=== PATIENT | female | born 1970 | race Caucasian/White ===

== ENCOUNTER 2018-06-25 15:57 | Emergency (ER) | payer OTHER ==
[~2018-06-25] VITALS: Ht 157.5 cm; Wt 84.1 kg
[2018-06-25 16:14] LABS: GLUCOSE,POINT OF CARE 304 MG/DL (70-110)
[2018-06-25] MEDS ORDERED: PROM6.2522 PO (16:17)
[2018-06-25] MEDS ORDERED: INSLAN SQ (16:17)
[2018-06-25] MEDS ORDERED: LEVO25TA9 PO (16:17)
[2018-06-25] MEDS ORDERED: HYDR-4455 PO (16:17)
[2018-06-25] MEDS ORDERED: [UNRECOGNIZED DRUG - OTHER] PO (16:17)
[2018-06-25] MEDS ORDERED: GABA-533 PO (16:17)
[2018-06-25] MEDS ORDERED: SODIUM CHLORIDE 0.9% 1,000 ML IV ONE (16:45)
[2018-06-25 17:09] LABS: BASOPHILS % (AUTO) 0.5 % (0.0-2.0); EOSINOPHILS % (AUTO) 1.3 % (1.0-6.0); HEMATOCRIT 24.4 % (36-46); HEMOGLOBIN 8.4 g/dL (12.0-16.0); LYMPHOCYTES # (AUTO) 2.6 K/uL (1.0-4.8); LYMPHOCYTES % (AUTO) 38.7 % (22.0-44.0); MEAN CORPUSCULAR HEMOGLOBIN 30.1 pg (26.0-34.0); MEAN CORPUSCULAR HGB CONC 34.6 G/dL (31.0-37.0); MEAN CORPUSCULAR VOLUME 87 fL (80-100); MONOCYTES # (AUTO) 0.4 K/uL (0.1-1.0); MONOCYTES % (AUTO) 6.4 % (2.0-9.0); NEUTROPHILS # (AUTO) 3.5 K/uL (1.8-7.7); NEUTROPHILS % (AUTO) 53.1 % (40.0-70.0); PLATELET COUNT (AUTO) 292 K/uL (150-450)
[2018-06-25 17:22] LABS: CALCIUM, TOTAL 7.9 mg/dL (8.8-10.5); CREATININE 1.62 mg/dL (0.60-1.30); POTASSIUM 5.3 mmol/L (3.5-5.1)
[2018-06-25 17:25] LABS: ALBUMIN 2.3 g/dL (3.4-5.0); BILIRUBIN,TOTAL 0.2 mg/dL (0.1-1.0); TOTAL PROTEIN, SERUM 5.8 g/dL (6.4-8.2)
[2018-06-25] MEDS ORDERED: HYDROCODONE/ACETAMINOPHEN 5-325 MG TABLET PO ONE (18:45)
[2018-06-25 19:14] LABS: GLUCOSE,POINT OF CARE 283 MG/DL (70-110)
[2018-06-25 20:20] VITALS: BP 183/92
== END 2018-06-25 20:42 | disposition home or self-care (01) ==
LOC: EMS 15:58
DX: E11.65 Type 2 diabetes mellitus with hyperglycemia (principal); D64.9 Anemia, unspecified; G89.29 Other chronic pain; E03.9 Hypothyroidism, unspecified; M19.90 Unspecified osteoarthritis, unspecified site; Z88.0 Allergy status to penicillin; Z79.4 Long term (current) use of insulin
CPT/HCPCS: 36415; 80053; 82962; 84484; 84703; 85025; 93005; 96360; 96361; 99285; J7030

== ENCOUNTER 2018-07-03 12:50 | Inpatient (IN) | payer OTHER ==
[~2018-07-03] VITALS: Ht 165.1 cm; Wt 80.2 kg
[~2018-07-03 12:50] MED LIST: GABA-533 PO; HYDR-4455 PO; INSLAN SQ; LEVO25TA9 PO; PROM6.2522 PO; [UNRECOGNIZED DRUG - OTHER] PO
[2018-07-03] MEDS ORDERED: METH10 PO (13:15)
[2018-07-03 13:24] LABS: GLUCOSE,POINT OF CARE 310 MG/DL (70-110)
[2018-07-03 14:13] LABS: BASOPHILS % (AUTO) 0.5 % (0.0-2.0); EOSINOPHILS % (AUTO) 1.6 % (1.0-6.0); HEMATOCRIT 26.7 % (36-46); HEMOGLOBIN 9.5 g/dL (12.0-16.0); LYMPHOCYTES # (AUTO) 2.7 K/uL (1.0-4.8); LYMPHOCYTES % (AUTO) 36.5 % (22.0-44.0); MEAN CORPUSCULAR HEMOGLOBIN 30.2 pg (26.0-34.0); MEAN CORPUSCULAR HGB CONC 35.7 G/dL (31.0-37.0); MEAN CORPUSCULAR VOLUME 84 fL (80-100); MONOCYTES # (AUTO) 0.4 K/uL (0.1-1.0); MONOCYTES % (AUTO) 4.8 % (2.0-9.0); NEUTROPHILS # (AUTO) 4.2 K/uL (1.8-7.7); NEUTROPHILS % (AUTO) 56.6 % (40.0-70.0); PLATELET COUNT (AUTO) 334 K/uL (150-450); RED BLOOD CELL COUNT(AUTO) 3.16 MIL/uL (4.00-5.20); RED CELL DISTRIBUTION WIDTH 14.1 % (11.5-14.5)
[2018-07-03 14:25] LABS: INR 0.9 (0.9-1.1); PROTHROMBIN TIME 9.7 SEC (9.4-11.6)
[2018-07-03 14:27] LABS: CALCIUM, TOTAL 8.4 mg/dL (8.8-10.5); CREATININE 1.86 mg/dL (0.60-1.30); POTASSIUM 4.6 mmol/L (3.5-5.1)
[2018-07-03] MEDS ORDERED: NITROGLYCERIN 2% (1 GM=INCH) PACKET TP ONE (14:30)
[2018-07-03] MEDS ORDERED: ASPIRIN 81 MG CHEWABLE TABLET PO ONE (14:30)
[2018-07-03 14:51] LABS: ALBUMIN 2.8 g/dL (3.4-5.0); BILIRUBIN,TOTAL 0.2 mg/dL (0.1-1.0); TOTAL PROTEIN, SERUM 6.7 g/dL (6.4-8.2)
[2018-07-03] MEDS ORDERED: SODIUM CHLORIDE 0.9% 1,000 ML IV ONE (15:15)
[2018-07-03] MEDS ORDERED: MORPHINE SULFATE 4 MG/ML SYRINGE IVP ONE (16:00)
[2018-07-03 16:30] LABS: APPEARANCE,URINE CLOUDY (CLEAR); BILIRUBIN,URINE NEGATIVE (NEGATIVE); GLUCOSE, URINE (UA) >=1000 mg/dL (NEGATIVE); KETONES,URINE NEGATIVE (NEGATIVE); LEUKOCYTE ESTERASE ,URINE NEGATIVE (NEGATIVE); NITRATE,URINE NEGATIVE (NEGATIVE); OCCULT BLOOD,URINE TRACE (NEGATIVE); PROTEIN,URINE SEE CONFIRM (NEGATIVE); UROBILINOGEN,URINE 0.2 mg/dL (<=1.0)
[2018-07-03] MEDS ORDERED: ACETAMINOPHEN 325 MG TABLET PO PRN ×2 (16:30→20:45)
[2018-07-03] MEDS ORDERED: ONDANSETRON HCL 4 MG/2 ML VIAL IVP PRN (16:30)
[2018-07-03] MEDS ORDERED: 0.9% SODIUM CHLORIDE 10 ML SYRINGE IVP PRN (16:30)
[2018-07-03 16:38] LABS: SULFOSALICYLIC ACID,URINE 4+ (Negative)
[2018-07-03 16:39] LABS: BACTERIA,URINE Few /HPF (None Seen); SQUAMOUS EPITHELIAL CELL,UR Many /LPF (None Seen)
[2018-07-03] MEDS: LABETALOL HCL 5 MG/ML 20 ML VIAL IVP ONE ×2 (17:39→17:55)
[2018-07-03 18:46] VITALS: BP 152/78
[2018-07-03 20:09] VITALS: BP 137/91
[2018-07-03] MEDS ORDERED: BISACODYL 10 MG RECTAL RECTAL SUPPOSITORY PR PRN (20:45)
[2018-07-03] MEDS ORDERED: OxyCODONE HCL/ACETAMINOPHEN 5-325 MG TABLET PO PRN (20:45)
[2018-07-03] MEDS ORDERED: DEXTROSE 50%-WATER 25 GM/50 ML SYRINGE IVP PRN (20:45)
[2018-07-03] MEDS ORDERED: INSULIN GLARGINE,HUM.REC.ANLOG 100 UNITS/ML SQ SCH (21:00)
[2018-07-03] MEDS ORDERED: ATORVASTATIN CALCIUM 20 MG TABLET PO SCH (21:00)
[2018-07-03] MEDS ORDERED: METHADONE HCL 10 MG TABLET PO SCH (21:00)
[2018-07-03] MEDS: DOCUSATE SODIUM 100 MG CAPSULE PO SCH (21:00)
[2018-07-03] MEDS: OxyCODONE HCL/ACETAMINOPHEN 5-325 MG TABLET PO PRN (21:17)
[2018-07-03] MEDS: INSULIN LISPRO 100 UNITS/ML SQ PRN (21:24)
[2018-07-03 23:50] VITALS: BP 158/78
[2018-07-04 00:09] LABS: GLUCOMETER DEV NAME(LOC) 5S 2R; GLUCOSE,POINT OF CARE 349 MG/DL (70-110)
[2018-07-04] MEDS: OxyCODONE HCL/ACETAMINOPHEN 5-325 MG TABLET PO PRN ×2 (03:17→08:07)
[2018-07-04 03:35] VITALS: BP 156/78
[2018-07-04] MEDS: INSULIN LISPRO 100 UNITS/ML SQ PRN (06:22)
[2018-07-04 06:29] LABS: HEMOGLOBIN A1C 11.2 % (4.5-6.2)
[2018-07-04 06:38] LABS: CHOL/HDL RATIO 6.1 (3.9-5.7); CHOLESTEROL 336 mg/dL (131-200); HDL CHOLESTEROL 55 mg/dL (40-60); TRIGLYCERIDES 575 mg/dL (15-150)
[2018-07-04 07:22] VITALS: BP 146/79
[2018-07-04] MEDS: DOCUSATE SODIUM 100 MG CAPSULE PO SCH (08:07)
[2018-07-04] MEDS ORDERED: PANTOPRAZOLE SODIUM 40 MG DR TABLET PO SCH (09:00)
[2018-07-04] MEDS ORDERED: ASPIRIN 81 MG CHEWABLE TABLET PO SCH (09:00)
[2018-07-04 10:04] LABS: GLUCOMETER DEV NAME(LOC) 5S 2R; GLUCOSE,POINT OF CARE 229 MG/DL (70-110)
[2018-07-04] MEDS ORDERED: ONDANSETRON HCL 4 MG/2 ML VIAL IVP PRN (10:15)
[2018-07-04 11:25] VITALS: BP 155/77
[2018-07-04] MEDS ORDERED: METHADONE HCL 10 MG TABLET PO SCH (11:30)
[2018-07-04] MEDS ORDERED: ATOR40TA28 PO (13:08)
[2018-07-04 16:10] VITALS: BP 169/79
[2018-07-06 05:49] LABS: GLUCOMETER DEV NAME(LOC) 5N 1P; GLUCOSE,POINT OF CARE 135 MG/DL (70-110)
== END 2018-07-04 17:00 | disposition home or self-care (01) | DRG 203 ==
LOC: EMS 12:51 → 5S 16:19
PROVIDERS: ADMIT Internal Medicine; ATTEND Internal Medicine
DX: R07.89 Other chest pain (principal); E11.40 Type 2 diabetes mellitus with diabetic neuropathy, unspecified; E11.21 Type 2 diabetes mellitus with diabetic nephropathy; N17.9 Acute kidney failure, unspecified; F11.20 Opioid dependence, uncomplicated; E11.22 Type 2 diabetes mellitus with diabetic chronic kidney disease; M32.9 Systemic lupus erythematosus, unspecified; N18.3 Chronic kidney disease, stage 3 (moderate); I16.0 Hypertensive urgency; E03.9 Hypothyroidism, unspecified; M19.90 Unspecified osteoarthritis, unspecified site; G89.4 Chronic pain syndrome; D63.8 Anemia in other chronic diseases classified elsewhere; E11.65 Type 2 diabetes mellitus with hyperglycemia; Z88.0 Allergy status to penicillin; Z88.8 Allergy status to other drugs, medicaments and biological substances; Z79.4 Long term (current) use of insulin; Z91.19 Patient's noncompliance with other medical treatment and regimen
CPT/HCPCS: 83036; 93005; 93306; 96374; 96375; G0378; J1815; J2270; J2405; J3490; J7030

== ENCOUNTER 2021-03-30 12:25 | Inpatient (IN) | payer MEDICAID, OTHER ==
[~2021-03-30] VITALS: Ht 165.1 cm; Wt 81.0 kg
[~2021-03-30 12:25] MED LIST changes: +ATOR40TA28 PO; +GABA-1201 PO; -GABA-533 PO; +METH10 PO; -PROM6.2522 PO
[2021-03-30 13:55] LABS: BASOPHILS % (AUTO) 0.7 % (0.0-2.0); EOSINOPHILS % (AUTO) 1.6 % (1.0-6.0); HEMATOCRIT 26.8 % (36-46); HEMOGLOBIN 8.7 g/dL (12.0-16.0); LYMPHOCYTES % (AUTO) 29.5 % (22.0-44.0); MEAN CORPUSCULAR HEMOGLOBIN 29.5 pg (26.0-34.0); MEAN CORPUSCULAR HGB CONC 32.5 G/dL (31.0-37.0); MEAN CORPUSCULAR VOLUME 91 fL (80-100); MONOCYTES # (AUTO) 0.6 K/uL (0.1-1.0); MONOCYTES % (AUTO) 8.2 % (2.0-9.0); NEUTROPHILS # (AUTO) 4.1 K/uL (1.8-7.7); PLATELET COUNT (AUTO) 310 K/uL (150-450); RED BLOOD CELL COUNT(AUTO) 2.94 MIL/uL (4.00-5.20); RED CELL DISTRIBUTION WIDTH 16.1 % (11.5-14.5)
[2021-03-30 13:59] LABS: COVID AG,FIA SOURCE NASOPHARYNGEAL
[2021-03-30] MEDS ORDERED: LEVO100 PO (13:59)
[2021-03-30] MEDS ORDERED: CARV12.530 PO (13:59)
[2021-03-30] MEDS ORDERED: DULA1.5P SQ (13:59)
[2021-03-30 14:00] LABS: ANION GAP 8 mmol/L (8-16); CALCIUM, TOTAL 7.3 mg/dL (8.8-10.5); CARBON DIOXIDE 28 mmol/L (22-29); CHLORIDE 97 mmol/L (98-107); CREATININE 9.41 mg/dL (0.60-1.30); GLOMERULAR FILTR. RATE CALC 4 mL/min (>60); GLUCOSE,RANDOM 328 mg/dL (70-110); POTASSIUM 5.5 mmol/L (3.5-5.1); SODIUM SERUM 133 mmol/L (136-145); UREA NITROGEN, BLOOD 66 mg/dL (7-18)
[2021-03-30] MEDS ORDERED: ONDANSETRON HCL 4 MG/2 ML VIAL IVP PRN (14:00)
[2021-03-30] MEDS ORDERED: DEXTROSE 50%-WATER 25 GM/50 ML SYRINGE IVP PRN (14:00)
[2021-03-30 14:06] LABS: ALANINE AMINOTRANSFERASE 29 U/L (12-78); ALBUMIN 3.4 g/dL (3.4-5.0); ALKALINE PHOSPHATASE 77 U/L (46-116); ASPARTATE AMINOTRANSFERASE 16 U/L (15-37); BILIRUBIN,TOTAL 0.2 mg/dL (0.1-1.0); TOTAL PROTEIN, SERUM 7.1 g/dL (6.4-8.2)
[2021-03-30 14:46] VITALS: BP 156/74
[2021-03-30] MEDS: LORazepam 2 MG/ML VIAL IVP PRN ×2 (16:16→22:48)
[2021-03-30] MEDS: INSULIN LISPRO 100 UNITS/ML SQ PRN ×2 (17:07→22:54)
[2021-03-30] MEDS ORDERED: SODIUM CHLORIDE 0.9% 2,000 ML ONE (18:02)
[2021-03-30 18:08] LABS: GLUCOMETER DEV NAME(LOC) 6S.1; GLUCOSE,POINT OF CARE 193 MG/DL (70-110)
[2021-03-30] MEDS: GABAPENTIN 100 MG CAPSULE PO SCH (18:23)
[2021-03-30] MEDS: HEPARIN SODIUM,PORCINE 5,000 UNITS/ML VIAL SQ SCH (21:00)
[2021-03-30 22:30] VITALS: BP 101/46
[2021-03-30] MEDS: ACETAMINOPHEN 325 MG TABLET PO PRN (22:49)
[2021-03-30] MEDS: DOCUSATE SODIUM 100 MG CAPSULE PO SCH (22:54)
[2021-03-30 23:54] LABS: GLUCOMETER DEV NAME(LOC) 6N.1; GLUCOSE,POINT OF CARE 209 MG/DL (70-110)
[2021-03-30] MEDS: ZOLPIDEM TARTRATE 5 MG TABLET PO PRN (23:56)
[2021-03-31 03:00] VITALS: BP 100/58
[2021-03-31] MEDS: ACETAMINOPHEN 325 MG TABLET PO PRN ×5 (03:37→20:05)
[2021-03-31] MEDS: LORazepam 2 MG/ML VIAL IVP PRN ×5 (03:40→20:06)
[2021-03-31] MEDS ORDERED: LIDOCAINE/PF 1% 2 ML VIAL IM ONE (03:47)
[2021-03-31] MEDS ORDERED: DiphenhydrAMINE HCL 50 MG/ML VIAL IVP ONE (03:47)
[2021-03-31] MEDS: INSULIN LISPRO 100 UNITS/ML SQ PRN ×3 (05:59→22:43)
[2021-03-31 06:56] LABS: GLUCOMETER DEV NAME(LOC) 6N.1; GLUCOSE,POINT OF CARE 269 MG/DL (70-110)
[2021-03-31 07:25] VITALS: BP_SYST 107; BP_SYST 123; BP_DIAS 43; BP_DIAS 68
[2021-03-31] MEDS: GABAPENTIN 100 MG CAPSULE PO SCH (08:11)
[2021-03-31] MEDS: HEPARIN SODIUM,PORCINE 5,000 UNITS/ML VIAL SQ SCH ×2 (08:11→20:06)
[2021-03-31] MEDS: FAMOTIDINE 20 MG TABLET PO SCH (08:11)
[2021-03-31] MEDS: DOCUSATE SODIUM 100 MG CAPSULE PO SCH ×2 (08:11→21:00)
[2021-03-31] MEDS: INSULIN GLARGINE,HUM.REC.ANLOG 100 UNITS/ML SQ SCH ×2 (09:49→21:58)
[2021-03-31 09:56] VITALS: BP 103/51
[2021-03-31 11:24] LABS: GLUCOMETER DEV NAME(LOC) 6N.1; GLUCOSE,POINT OF CARE 104 MG/DL (70-110)
[2021-03-31] MEDS: SEVELAMER CARBONATE 800 MG TABLET PO SCH ×2 (12:55→17:44)
[2021-03-31 18:34] LABS: GLUCOMETER DEV NAME(LOC) 6S.1; GLUCOSE,POINT OF CARE 155 MG/DL (70-110)
[2021-03-31 19:30] VITALS: BP 126/70
[2021-03-31] MEDS: GABAPENTIN 300 MG CAPSULE PO SCH (20:06)
[2021-03-31] MEDS: ZOLPIDEM TARTRATE 5 MG TABLET PO PRN (21:53)
[2021-03-31 23:30] VITALS: BP 119/69
[2021-04-01 00:39] LABS: GLUCOMETER DEV NAME(LOC) 6S.1; GLUCOSE,POINT OF CARE 133 MG/DL (70-110)
[2021-04-01] MEDS: ACETAMINOPHEN 325 MG TABLET PO PRN ×2 (01:21→22:10)
[2021-04-01] MEDS: LORazepam 2 MG/ML VIAL IVP PRN ×3 (01:51→21:22)
[2021-04-01 03:15] VITALS: BP 127/62
[2021-04-01] MEDS ORDERED: MELATONIN 3 MG TABLET PO ONE (03:15)
[2021-04-01] MEDS ORDERED: DiphenhydrAMINE HCL 50 MG/ML VIAL IM ONE ×2 (03:15→14:50)
[2021-04-01] MEDS: LEVOTHYROXINE SODIUM 100 MCG TABLET PO SCH (05:53)
[2021-04-01] MEDS: INSULIN LISPRO 100 UNITS/ML SQ PRN ×3 (06:01→18:08)
[2021-04-01 06:28] LABS: BASOPHILS % (AUTO) 0.8 % (0.0-2.0); EOSINOPHILS % (AUTO) 2.4 % (1.0-6.0); HEMATOCRIT 29.7 % (36-46); HEMOGLOBIN 9.9 g/dL (12.0-16.0); LYMPHOCYTES % (AUTO) 40.7 % (22.0-44.0); MEAN CORPUSCULAR HGB CONC 33.2 G/dL (31.0-37.0); MEAN CORPUSCULAR VOLUME 90 fL (80-100); MONOCYTES # (AUTO) 0.5 K/uL (0.1-1.0); MONOCYTES % (AUTO) 6.4 % (2.0-9.0); NEUTROPHILS # (AUTO) 3.7 K/uL (1.8-7.7); NEUTROPHILS % (AUTO) 49.7 % (40.0-70.0); PLATELET COUNT (AUTO) 338 K/uL (150-450); RED BLOOD CELL COUNT(AUTO) 3.29 MIL/uL (4.00-5.20); RED CELL DISTRIBUTION WIDTH 15.7 % (11.5-14.5)
[2021-04-01 06:54] LABS: CALCIUM, TOTAL 7.9 mg/dL (8.8-10.5); CREATININE 8.43 mg/dL (0.60-1.30); MAGNESIUM 2.2 mg/dL (1.80-2.40); PHOSPHORUS 5.9 mg/dL (2.5-4.9)
[2021-04-01] MEDS: DOCUSATE SODIUM 100 MG CAPSULE PO SCH ×2 (08:48→20:01)
[2021-04-01] MEDS: HEPARIN SODIUM,PORCINE 5,000 UNITS/ML VIAL SQ SCH ×2 (08:48→20:05)
[2021-04-01] MEDS: FAMOTIDINE 20 MG TABLET PO SCH (08:48)
[2021-04-01] MEDS: GABAPENTIN 300 MG CAPSULE PO SCH ×3 (08:48→20:02)
[2021-04-01] MEDS: SEVELAMER CARBONATE 800 MG TABLET PO SCH ×3 (08:48→18:21)
[2021-04-01 08:50] VITALS: BP 147/73
[2021-04-01] MEDS: INSULIN GLARGINE,HUM.REC.ANLOG 100 UNITS/ML SQ SCH ×2 (08:52→20:09)
[2021-04-01] MEDS ORDERED: SODIUM CHLORIDE 0.9% 1,000 ML ONE ×2 (09:37)
[2021-04-01] MEDS ORDERED: LORazepam 0.5 MG TABLET ONE (14:08)
[2021-04-01] MEDS ORDERED: LIDOCAINE/PF 1% 2 ML VIAL IM ONE (14:50)
[2021-04-01 15:05] LABS: GLUCOMETER DEV NAME(LOC) 6S.1; GLUCOSE,POINT OF CARE 157 MG/DL (70-110)
[2021-04-01] MEDS: HydrOXYzine PAMOATE 50 MG CAPSULE PO PRN ×2 (18:02→23:28)
[2021-04-01] MEDS: HALOPERIDOL 5 MG TABLET PO PRN ×2 (18:02→23:28)
[2021-04-01 18:53] LABS: GLUCOMETER DEV NAME(LOC) 6N.1; GLUCOSE,POINT OF CARE 169 MG/DL (70-110)
[2021-04-01 18:53] LABS: GLUCOMETER DEV NAME(LOC) 6N.1; GLUCOSE,POINT OF CARE 201 MG/DL (70-110)
[2021-04-01 19:55] VITALS: BP 110/60
[2021-04-01] MEDS: ZOLPIDEM TARTRATE 5 MG TABLET PO PRN (20:02)
[2021-04-01 23:41] LABS: GLUCOMETER DEV NAME(LOC) 6N.1; GLUCOSE,POINT OF CARE 110 MG/DL (70-110)
[2021-04-02] MEDS: LORazepam 2 MG/ML VIAL IVP PRN ×4 (01:30→22:51)
[2021-04-02] MEDS: ACETAMINOPHEN 325 MG TABLET PO PRN ×3 (02:26→21:51)
[2021-04-02] MEDS: HALOPERIDOL 5 MG TABLET PO PRN ×3 (03:44→20:28)
[2021-04-02] MEDS: HydrOXYzine PAMOATE 50 MG CAPSULE PO PRN ×4 (03:44→21:51)
[2021-04-02 04:50] VITALS: BP 122/80
[2021-04-02] MEDS: LEVOTHYROXINE SODIUM 100 MCG TABLET PO SCH (06:33)
[2021-04-02 08:10] LABS: GLUCOMETER DEV NAME(LOC) 6S.1; GLUCOSE,POINT OF CARE 125 MG/DL (70-110)
[2021-04-02] MEDS: HEPARIN SODIUM,PORCINE 5,000 UNITS/ML VIAL SQ SCH ×2 (08:23→20:28)
[2021-04-02] MEDS: SEVELAMER CARBONATE 800 MG TABLET PO SCH ×3 (08:26→17:35)
[2021-04-02] MEDS: DOCUSATE SODIUM 100 MG CAPSULE PO SCH ×2 (08:26→20:28)
[2021-04-02] MEDS: EPOETIN ALFA 10,000 UNITS/ML VIAL SQ SCH (08:26)
[2021-04-02] MEDS: FAMOTIDINE 20 MG TABLET PO SCH (08:26)
[2021-04-02] MEDS: GABAPENTIN 300 MG CAPSULE PO SCH ×3 (08:26→20:28)
[2021-04-02] MEDS: INSULIN GLARGINE,HUM.REC.ANLOG 100 UNITS/ML SQ SCH ×2 (08:31→20:29)
[2021-04-02 13:08] LABS: GLUCOMETER DEV NAME(LOC) 6N.1; GLUCOSE,POINT OF CARE 138 MG/DL (70-110)
[2021-04-02 18:55] LABS: GLUCOMETER DEV NAME(LOC) 6N.1; GLUCOSE,POINT OF CARE 132 MG/DL (70-110)
[2021-04-02] MEDS: ZOLPIDEM TARTRATE 5 MG TABLET PO PRN (20:28)
[2021-04-02] MEDS: INSULIN LISPRO 100 UNITS/ML SQ PRN (20:29)
[2021-04-02 20:35] VITALS: BP 131/70
[2021-04-02 21:09] LABS: GLUCOMETER DEV NAME(LOC) 6N.1; GLUCOSE,POINT OF CARE 287 MG/DL (70-110)
[2021-04-02 22:35] VITALS: BP 136/75
[2021-04-03 05:51] VITALS: BP 141/68
[2021-04-03] MEDS: LEVOTHYROXINE SODIUM 100 MCG TABLET PO SCH (05:55)
[2021-04-03 06:52] LABS: GLUCOMETER DEV NAME(LOC) 6N.1; GLUCOSE,POINT OF CARE 113 MG/DL (70-110)
[2021-04-03] MEDS: FAMOTIDINE 20 MG TABLET PO SCH (08:20)
[2021-04-03] MEDS: DOCUSATE SODIUM 100 MG CAPSULE PO SCH ×2 (08:20→19:48)
[2021-04-03] MEDS: HEPARIN SODIUM,PORCINE 5,000 UNITS/ML VIAL SQ SCH ×3 (08:20→19:48)
[2021-04-03] MEDS: SEVELAMER CARBONATE 800 MG TABLET PO SCH ×3 (08:20→18:13)
[2021-04-03] MEDS: GABAPENTIN 300 MG CAPSULE PO SCH ×3 (08:20→19:48)
[2021-04-03] MEDS: LORazepam 2 MG/ML VIAL IVP PRN (08:21)
[2021-04-03] MEDS: INSULIN GLARGINE,HUM.REC.ANLOG 100 UNITS/ML SQ SCH ×2 (08:22→19:50)
[2021-04-03 09:04] VITALS: BP 159/71
[2021-04-03] MEDS: INSULIN LISPRO 100 UNITS/ML SQ PRN ×2 (11:37→19:49)
[2021-04-03] MEDS: HydrOXYzine PAMOATE 50 MG CAPSULE PO PRN ×3 (11:40→23:49)
[2021-04-03 12:22] LABS: GLUCOMETER DEV NAME(LOC) 6N.1; GLUCOSE,POINT OF CARE 332 MG/DL (70-110)
[2021-04-03 12:28] LABS: BASOPHILS % (AUTO) 0.9 % (0.0-2.0); EOSINOPHILS % (AUTO) 1.6 % (1.0-6.0); HEMATOCRIT 30.6 % (36-46); HEMOGLOBIN 10.1 g/dL (12.0-16.0); LYMPHOCYTES # (AUTO) 1.8 K/uL (1.0-4.8); LYMPHOCYTES % (AUTO) 30.7 % (22.0-44.0); MEAN CORPUSCULAR HEMOGLOBIN 29.5 pg (26.0-34.0); MEAN CORPUSCULAR HGB CONC 32.8 G/dL (31.0-37.0); MEAN CORPUSCULAR VOLUME 90 fL (80-100); MONOCYTES # (AUTO) 0.3 K/uL (0.1-1.0); MONOCYTES % (AUTO) 5.1 % (2.0-9.0); NEUTROPHILS # (AUTO) 3.7 K/uL (1.8-7.7); NEUTROPHILS % (AUTO) 61.7 % (40.0-70.0); PLATELET COUNT (AUTO) 305 K/uL (150-450); RED BLOOD CELL COUNT(AUTO) 3.41 MIL/uL (4.00-5.20); RED CELL DISTRIBUTION WIDTH 15.8 % (11.5-14.5)
[2021-04-03 12:46] LABS: CALCIUM, TOTAL 8.2 mg/dL (8.8-10.5); CREATININE 9.34 mg/dL (0.60-1.30); MAGNESIUM 2.8 mg/dL (1.80-2.40); PHOSPHORUS 6.2 mg/dL (2.5-4.9); POTASSIUM 4.7 mmol/L (3.5-5.1)
[2021-04-03] MEDS: ACETAMINOPHEN 325 MG TABLET PO PRN ×2 (13:07→19:50)
[2021-04-03] MEDS ORDERED: SODIUM CHLORIDE 0.9% 1,000 ML ONE (13:30)
[2021-04-03] MEDS ORDERED: ACETAMINOPHEN 325 MG TABLET PO ONE (16:30)
[2021-04-03 18:29] LABS: GLUCOMETER DEV NAME(LOC) 6S.1; GLUCOSE,POINT OF CARE 127 MG/DL (70-110)
[2021-04-03 19:45] VITALS: BP 119/59
[2021-04-03] MEDS: HALOPERIDOL 5 MG TABLET PO PRN ×2 (19:48→23:49)
[2021-04-03] MEDS: ZOLPIDEM TARTRATE 5 MG TABLET PO PRN (23:49)
[2021-04-04] MEDS: LEVOTHYROXINE SODIUM 100 MCG TABLET PO SCH (04:19)
[2021-04-04] MEDS: HydrOXYzine PAMOATE 50 MG CAPSULE PO PRN ×3 (04:19→21:08)
[2021-04-04 04:20] VITALS: BP 127/71
[2021-04-04] MEDS: INSULIN LISPRO 100 UNITS/ML SQ PRN ×4 (04:20→21:11)
[2021-04-04] MEDS: DOCUSATE SODIUM 100 MG CAPSULE PO SCH ×2 (08:09→21:00)
[2021-04-04] MEDS: GABAPENTIN 300 MG CAPSULE PO SCH ×2 (08:09→21:00)
[2021-04-04] MEDS: SEVELAMER CARBONATE 800 MG TABLET PO SCH ×3 (08:09→17:47)
[2021-04-04] MEDS: FAMOTIDINE 20 MG TABLET PO SCH (08:09)
[2021-04-04] MEDS: ACETAMINOPHEN 325 MG TABLET PO PRN (08:10)
[2021-04-04] MEDS: INSULIN GLARGINE,HUM.REC.ANLOG 100 UNITS/ML SQ SCH ×2 (08:11→21:10)
[2021-04-04] MEDS: HEPARIN SODIUM,PORCINE 5,000 UNITS/ML VIAL SQ SCH ×2 (08:16→21:01)
[2021-04-04 08:49] VITALS: BP 132/63
[2021-04-04 11:12] LABS: GLUCOMETER DEV NAME(LOC) 6N.1; GLUCOSE,POINT OF CARE 142 MG/DL (70-110)
[2021-04-04 11:12] LABS: GLUCOMETER DEV NAME(LOC) 6N.1; GLUCOSE,POINT OF CARE 241 MG/DL (70-110)
[2021-04-04] MEDS: TraMADol HCL 50 MG TABLET PO PRN ×2 (15:46→21:08)
[2021-04-04 18:56] LABS: GLUCOMETER DEV NAME(LOC) 6S.1; GLUCOSE,POINT OF CARE 175 MG/DL (70-110)
[2021-04-04 18:56] LABS: GLUCOMETER DEV NAME(LOC) 6S.1; GLUCOSE,POINT OF CARE 235 MG/DL (70-110)
[2021-04-04 20:35] VITALS: BP 162/82
[2021-04-04] MEDS: TraZODone HCL 50 MG TABLET PO PRN (21:08)
[2021-04-04 23:08] LABS: GLUCOMETER DEV NAME(LOC) 6N.1; GLUCOSE,POINT OF CARE 143 MG/DL (70-110)
[2021-04-04] MEDS: ZOLPIDEM TARTRATE 5 MG TABLET PO PRN (23:31)
[2021-04-05] MEDS: ACETAMINOPHEN 325 MG TABLET PO PRN (00:33)
[2021-04-05] MEDS: HALOPERIDOL 5 MG TABLET PO PRN (00:34)
[2021-04-05 04:25] VITALS: BP 145/70
[2021-04-05] MEDS: LEVOTHYROXINE SODIUM 100 MCG TABLET PO SCH (07:04)
[2021-04-05 07:39] VITALS: BP 106/53
[2021-04-05] MEDS: TraMADol HCL 50 MG TABLET PO PRN ×3 (08:21→23:03)
[2021-04-05] MEDS: SEVELAMER CARBONATE 800 MG TABLET PO SCH ×3 (08:21→17:53)
[2021-04-05] MEDS: FAMOTIDINE 20 MG TABLET PO SCH (08:22)
[2021-04-05] MEDS: EPOETIN ALFA 10,000 UNITS/ML VIAL SQ SCH (08:23)
[2021-04-05] MEDS: DOCUSATE SODIUM 100 MG CAPSULE PO SCH ×2 (08:24→20:47)
[2021-04-05] MEDS: HEPARIN SODIUM,PORCINE 5,000 UNITS/ML VIAL SQ SCH ×2 (08:24→20:58)
[2021-04-05] MEDS: INSULIN GLARGINE,HUM.REC.ANLOG 100 UNITS/ML SQ SCH ×2 (08:26→21:00)
[2021-04-05 09:42] LABS: GLUCOMETER DEV NAME(LOC) 6S.1; GLUCOSE,POINT OF CARE 105 MG/DL (70-110)
[2021-04-05] MEDS: INSULIN LISPRO 100 UNITS/ML SQ PRN ×3 (12:36→21:03)
[2021-04-05 13:56] LABS: GLUCOMETER DEV NAME(LOC) 6S.1; GLUCOSE,POINT OF CARE 163 MG/DL (70-110)
[2021-04-05] MEDS ORDERED: DiphenhydrAMINE HCL 50 MG/ML VIAL IM ONE (15:35)
[2021-04-05] MEDS ORDERED: LIDOCAINE/PF 1% 2 ML VIAL CAUDAL ONE (15:35)
[2021-04-05] MEDS: TraZODone HCL 50 MG TABLET PO PRN (20:48)
[2021-04-05] MEDS: GABAPENTIN 300 MG CAPSULE PO SCH (20:48)
[2021-04-05 20:51] VITALS: BP 149/85
[2021-04-05] MEDS: ZOLPIDEM TARTRATE 5 MG TABLET PO PRN (23:01)
[2021-04-06 01:20] LABS: GLUCOMETER DEV NAME(LOC) 6S.1; GLUCOSE,POINT OF CARE 179 MG/DL (70-110)
[2021-04-06 06:00] VITALS: BP 125/62
[2021-04-06] MEDS: LEVOTHYROXINE SODIUM 100 MCG TABLET PO SCH (06:03)
[2021-04-06 06:38] LABS: GLUCOMETER DEV NAME(LOC) 6N.1; GLUCOSE,POINT OF CARE 185 MG/DL (70-110)
[2021-04-06 07:44] LABS: GLUCOMETER DEV NAME(LOC) 6S.1; GLUCOSE,POINT OF CARE 97 MG/DL (70-110)
[2021-04-06 08:04] VITALS: BP 145/70
[2021-04-06] MEDS: SEVELAMER CARBONATE 800 MG TABLET PO SCH ×3 (08:35→18:00)
[2021-04-06] MEDS: TraMADol HCL 50 MG TABLET PO PRN ×3 (08:35→23:55)
[2021-04-06] MEDS: HEPARIN SODIUM,PORCINE 5,000 UNITS/ML VIAL SQ SCH ×2 (08:35→21:21)
[2021-04-06] MEDS: DOCUSATE SODIUM 100 MG CAPSULE PO SCH ×2 (08:35→21:21)
[2021-04-06] MEDS: FAMOTIDINE 20 MG TABLET PO SCH (08:35)
[2021-04-06] MEDS: INSULIN GLARGINE,HUM.REC.ANLOG 100 UNITS/ML SQ SCH ×2 (08:36→21:20)
[2021-04-06] MEDS: INSULIN LISPRO 100 UNITS/ML SQ PRN ×2 (11:33→21:20)
[2021-04-06 15:31] LABS: GLUCOMETER DEV NAME(LOC) 6N.1; GLUCOSE,POINT OF CARE 247 MG/DL (70-110)
[2021-04-06] MEDS: HydrOXYzine PAMOATE 50 MG CAPSULE PO PRN (17:30)
[2021-04-06 21:15] VITALS: BP 139/89
[2021-04-06] MEDS: ZOLPIDEM TARTRATE 5 MG TABLET PO PRN (21:26)
[2021-04-06] MEDS: ACETAMINOPHEN 325 MG TABLET PO PRN (21:59)
[2021-04-06] MEDS: TraZODone HCL 50 MG TABLET PO PRN (23:55)
[2021-04-07 02:55] LABS: GLUCOMETER DEV NAME(LOC) 6N.1; GLUCOSE,POINT OF CARE 140 MG/DL (70-110)
[2021-04-07 04:45] VITALS: BP 138/69
[2021-04-07] MEDS: INSULIN LISPRO 100 UNITS/ML SQ PRN ×3 (05:51→20:25)
[2021-04-07] MEDS: LEVOTHYROXINE SODIUM 100 MCG TABLET PO SCH (05:51)
[2021-04-07 06:26] LABS: GLUCOMETER DEV NAME(LOC) 6S.1; GLUCOSE,POINT OF CARE 198 MG/DL (70-110)
[2021-04-07 08:05] VITALS: BP 118/67
[2021-04-07] MEDS: FAMOTIDINE 20 MG TABLET PO SCH (08:37)
[2021-04-07] MEDS: DOCUSATE SODIUM 100 MG CAPSULE PO SCH ×2 (08:37→20:23)
[2021-04-07] MEDS: GABAPENTIN 300 MG CAPSULE PO SCH (08:37)
[2021-04-07] MEDS: TraMADol HCL 50 MG TABLET PO PRN ×2 (08:37→17:06)
[2021-04-07] MEDS: SEVELAMER CARBONATE 800 MG TABLET PO SCH ×3 (08:37→17:42)
[2021-04-07] MEDS: HEPARIN SODIUM,PORCINE 5,000 UNITS/ML VIAL SQ SCH ×2 (08:38→20:24)
[2021-04-07] MEDS: EPOETIN ALFA 10,000 UNITS/ML VIAL SQ SCH (08:38)
[2021-04-07] MEDS: INSULIN GLARGINE,HUM.REC.ANLOG 100 UNITS/ML SQ SCH ×2 (08:39→20:25)
[2021-04-07 12:47] LABS: GLUCOMETER DEV NAME(LOC) 6N.1; GLUCOSE,POINT OF CARE 113 MG/DL (70-110)
[2021-04-07] MEDS: ACETAMINOPHEN 325 MG TABLET PO PRN (14:22)
[2021-04-07] MEDS ORDERED: LIDOCAINE/PF 1% 2 ML VIAL IM ONE (17:05)
[2021-04-07 20:03] LABS: GLUCOMETER DEV NAME(LOC) 6N.1; GLUCOSE,POINT OF CARE 165 MG/DL (70-110)
[2021-04-07 20:08] VITALS: BP 149/77
[2021-04-07] MEDS: TraZODone HCL 50 MG TABLET PO PRN (20:23)
[2021-04-07] MEDS: HydrOXYzine PAMOATE 50 MG CAPSULE PO PRN (21:01)
[2021-04-07] MEDS: ZOLPIDEM TARTRATE 5 MG TABLET PO PRN (23:46)
[2021-04-08 02:40] LABS: GLUCOMETER DEV NAME(LOC) 6S.1; GLUCOSE,POINT OF CARE 173 MG/DL (70-110)
[2021-04-08 04:08] VITALS: BP 131/65
[2021-04-08] MEDS: LEVOTHYROXINE SODIUM 100 MCG TABLET PO SCH (05:53)
[2021-04-08] MEDS: TraMADol HCL 50 MG TABLET PO PRN ×3 (07:05→23:29)
[2021-04-08] MEDS: HEPARIN SODIUM,PORCINE 5,000 UNITS/ML VIAL SQ SCH ×2 (09:00→21:00)
[2021-04-08] MEDS: INSULIN GLARGINE,HUM.REC.ANLOG 100 UNITS/ML SQ SCH ×2 (09:00→21:00)
[2021-04-08] MEDS: DOCUSATE SODIUM 100 MG CAPSULE PO SCH ×2 (11:11→21:15)
[2021-04-08] MEDS: FAMOTIDINE 20 MG TABLET PO SCH (11:12)
[2021-04-08] MEDS: ACETAMINOPHEN 325 MG TABLET PO PRN ×2 (11:12→21:17)
[2021-04-08] MEDS: SEVELAMER CARBONATE 800 MG TABLET PO SCH ×3 (11:12→17:39)
[2021-04-08] MEDS: GABAPENTIN 300 MG CAPSULE PO SCH (11:12)
[2021-04-08 11:23] VITALS: BP 145/77
[2021-04-08] MEDS ORDERED: LIDOCAINE/PF 1% 2 ML VIAL IV ONE (16:53)
[2021-04-08] MEDS: INSULIN LISPRO 100 UNITS/ML SQ PRN ×2 (17:16→22:09)
[2021-04-08 20:00] VITALS: BP 149/77
[2021-04-08 20:07] LABS: GLUCOMETER DEV NAME(LOC) 6N.1; GLUCOSE,POINT OF CARE 163 MG/DL (70-110)
[2021-04-08 20:07] LABS: GLUCOMETER DEV NAME(LOC) 6N.1; GLUCOSE,POINT OF CARE 102 MG/DL (70-110)
[2021-04-08 20:07] LABS: GLUCOMETER DEV NAME(LOC) 6S.1; GLUCOSE,POINT OF CARE 106 MG/DL (70-110)
[2021-04-08] MEDS: TraZODone HCL 50 MG TABLET PO PRN (21:16)
[2021-04-08 22:59] LABS: GLUCOMETER DEV NAME(LOC) 6N.1; GLUCOSE,POINT OF CARE 194 MG/DL (70-110)
[2021-04-08] MEDS: ZOLPIDEM TARTRATE 5 MG TABLET PO PRN (23:26)
[2021-04-09] MEDS: LEVOTHYROXINE SODIUM 100 MCG TABLET PO SCH (05:42)
[2021-04-09 05:50] VITALS: BP 118/64
[2021-04-09] MEDS: ACETAMINOPHEN 325 MG TABLET PO PRN (05:50)
[2021-04-09 07:59] LABS: GLUCOMETER DEV NAME(LOC) 6S.1; GLUCOSE,POINT OF CARE 102 MG/DL (70-110)
[2021-04-09] MEDS: SEVELAMER CARBONATE 800 MG TABLET PO SCH ×3 (08:23→17:42)
[2021-04-09] MEDS: DOCUSATE SODIUM 100 MG CAPSULE PO SCH ×2 (08:23→20:15)
[2021-04-09] MEDS: GABAPENTIN 300 MG CAPSULE PO SCH (08:23)
[2021-04-09] MEDS: FAMOTIDINE 20 MG TABLET PO SCH (08:23)
[2021-04-09] MEDS: EPOETIN ALFA 10,000 UNITS/ML VIAL SQ SCH (08:23)
[2021-04-09] MEDS: HEPARIN SODIUM,PORCINE 5,000 UNITS/ML VIAL SQ SCH ×2 (08:24→20:15)
[2021-04-09] MEDS: INSULIN GLARGINE,HUM.REC.ANLOG 100 UNITS/ML SQ SCH ×2 (08:24→20:09)
[2021-04-09 08:28] VITALS: BP 140/70
[2021-04-09] MEDS: TraMADol HCL 50 MG TABLET PO PRN ×3 (08:39→23:42)
[2021-04-09 12:18] LABS: GLUCOMETER DEV NAME(LOC) 6N.1; GLUCOSE,POINT OF CARE 120 MG/DL (70-110)
[2021-04-09] MEDS: HydrOXYzine PAMOATE 50 MG CAPSULE PO PRN (14:57)
[2021-04-09] MEDS: INSULIN LISPRO 100 UNITS/ML SQ PRN ×2 (17:11→20:09)
[2021-04-09 19:33] LABS: GLUCOMETER DEV NAME(LOC) 6S.1; GLUCOSE,POINT OF CARE 200 MG/DL (70-110)
[2021-04-09 20:00] VITALS: BP 164/77
[2021-04-09] MEDS: TraZODone HCL 50 MG TABLET PO PRN (20:10)
[2021-04-09] MEDS: ZOLPIDEM TARTRATE 5 MG TABLET PO PRN (21:28)
[2021-04-10] MEDS: LEVOTHYROXINE SODIUM 100 MCG TABLET PO SCH (05:31)
[2021-04-10 05:33] VITALS: BP 151/77
[2021-04-10 07:18] LABS: GLUCOMETER DEV NAME(LOC) 6N.1; GLUCOSE,POINT OF CARE 129 MG/DL (70-110)
[2021-04-10 07:18] LABS: GLUCOMETER DEV NAME(LOC) 6N.1; GLUCOSE,POINT OF CARE 151 MG/DL (70-110)
[2021-04-10 07:18] LABS: GLUCOMETER DEV NAME(LOC) 6N.1; GLUCOSE,POINT OF CARE 169 MG/DL (70-110)
[2021-04-10 08:16] VITALS: BP 149/80
[2021-04-10] MEDS: TraMADol HCL 50 MG TABLET PO PRN (08:26)
[2021-04-10] MEDS: FAMOTIDINE 20 MG TABLET PO SCH (08:26)
[2021-04-10] MEDS: HEPARIN SODIUM,PORCINE 5,000 UNITS/ML VIAL SQ SCH (08:26)
[2021-04-10] MEDS: DOCUSATE SODIUM 100 MG CAPSULE PO SCH (08:26)
[2021-04-10] MEDS: GABAPENTIN 300 MG CAPSULE PO SCH (08:26)
[2021-04-10] MEDS: SEVELAMER CARBONATE 800 MG TABLET PO SCH ×2 (08:26→12:02)
[2021-04-10] MEDS: INSULIN GLARGINE,HUM.REC.ANLOG 100 UNITS/ML SQ SCH (08:28)
[2021-04-10] MEDS ORDERED: SODIUM CHLORIDE 0.9% 2,000 ML ONE (09:37)
[2021-04-10] MEDS: HydrOXYzine PAMOATE 50 MG CAPSULE PO PRN (09:41)
[2021-04-10] MEDS: INSULIN LISPRO 100 UNITS/ML SQ PRN (12:01)
[2021-04-10] MEDS ORDERED: VITAMIN B COMP/VIT C/FOLIC ACID CAPSULE PO SCH (13:00)
[2021-04-10] MEDS ORDERED: DOCU-270 PO (14:37)
[2021-04-10] MEDS ORDERED: FAMO20 PO (14:38)
[2021-04-10] MEDS ORDERED: GABA-1181 PO (14:39)
[2021-04-10] MEDS ORDERED: HEPA500018 SQ (14:39)
[2021-04-10] MEDS ORDERED: INSLAN SQ (14:40)
[2021-04-10] MEDS ORDERED: SEVE800T17 PO (14:42)
[2021-04-10] MEDS ORDERED: ACET-3207 PO (14:43)
[2021-04-10] MEDS ORDERED: INSU100V SQ (14:44)
[2021-04-10] MEDS ORDERED: DiphenhydrAMINE HCL 50 MG/ML VIAL IM ONE (15:44)
[2021-04-10] MEDS ORDERED: LIDOCAINE/PF 1% 2 ML VIAL CAUDAL ONE (15:44)
[2021-04-10 19:58] LABS: GLUCOMETER DEV NAME(LOC) 6S.1; GLUCOSE,POINT OF CARE 139 MG/DL (70-110)
== END 2021-04-10 15:45 | DRG 896 ==
LOC: EMS 12:25 → 6S 13:58
PROVIDERS: ADMIT Internal Medicine; ATTEND Internal Medicine
PROC: 5A1D70Z Performance of Urinary Filtration, Intermittent, Less than 6 Hours Per Day (ICD-10-PCS; 2021-03-30)
PROC: 5A1D70Z Performance of Urinary Filtration, Intermittent, Less than 6 Hours Per Day (ICD-10-PCS; principal; 2021-04-01)
PROC: 5A1D70Z Performance of Urinary Filtration, Intermittent, Less than 6 Hours Per Day (ICD-10-PCS; 2021-04-03)
PROC: 5A1D70Z Performance of Urinary Filtration, Intermittent, Less than 6 Hours Per Day (ICD-10-PCS; 2021-04-06)
PROC: 5A1D70Z Performance of Urinary Filtration, Intermittent, Less than 6 Hours Per Day (ICD-10-PCS; 2021-04-08)
PROC: 5A1D70Z Performance of Urinary Filtration, Intermittent, Less than 6 Hours Per Day (ICD-10-PCS; 2021-04-10)
DX: F11.23 Opioid dependence with withdrawal (principal); N18.6 End stage renal disease; R45.851 Suicidal ideations; I12.0 Hypertensive chronic kidney disease with stage 5 chronic kidney disease or end stage renal disease; F33.2 Major depressive disorder, recurrent severe without psychotic features; Z20.822 Contact with and (suspected) exposure to COVID-19; E03.9 Hypothyroidism, unspecified; D63.1 Anemia in chronic kidney disease; E11.22 Type 2 diabetes mellitus with diabetic chronic kidney disease; E11.40 Type 2 diabetes mellitus with diabetic neuropathy, unspecified; E11.65 Type 2 diabetes mellitus with hyperglycemia; M19.90 Unspecified osteoarthritis, unspecified site; F25.1 Schizoaffective disorder, depressive type; F41.1 Generalized anxiety disorder; G89.4 Chronic pain syndrome; Z02.89 Encounter for other administrative examinations; Z79.4 Long term (current) use of insulin; Z90.710 Acquired absence of both cervix and uterus; Z98.1 Arthrodesis status; Z99.2 Dependence on renal dialysis; Z88.0 Allergy status to penicillin; Z88.8 Allergy status to other drugs, medicaments and biological substances; Z79.899 Other long term (current) drug therapy
CPT/HCPCS: 71045; 80048; 80053; 82962; 83735; 84100; 84443; 85025; 86704; 86706; 87081; 87340; 90935; 99285; G0480; J0885; J1200; J1644; J1815; J2060; J3490; J7030; 36415-L1; 36415-TC

== ENCOUNTER 2021-06-24 15:45 | Inpatient (IN) | payer OTHER ==
[~2021-06-24] VITALS: Ht 165.1 cm; Wt 93.8 kg
[~2021-06-24 15:45] MED LIST changes: +ACET-3207 PO; +CARV12.530 PO; +DOCU-270 PO; +FAMO20 PO; +GABA-1181 PO; -GABA-1201 PO; +HEPA500018 SQ; -HYDR-4455 PO; +INSU100V SQ; +LEVO100 PO; -LEVO25TA9 PO; +SEVE800T17 PO; -[UNRECOGNIZED DRUG - OTHER] PO
[2021-06-24 16:45] LABS: BASOPHILS % (AUTO) 0.9 % (0.0-2.0); EOSINOPHILS % (AUTO) 2.2 % (1.0-6.0); HEMATOCRIT 30.5 % (36-46); HEMOGLOBIN 9.7 g/dL (12.0-16.0); LYMPHOCYTES # (AUTO) 1.6 K/uL (1.0-4.8); LYMPHOCYTES % (AUTO) 21.3 % (22.0-44.0); MEAN CORPUSCULAR HEMOGLOBIN 30.7 pg (26.0-34.0); MEAN CORPUSCULAR VOLUME 96 fL (80-100); MONOCYTES # (AUTO) 0.6 K/uL (0.1-1.0); MONOCYTES % (AUTO) 8.3 % (2.0-9.0); NEUTROPHILS # (AUTO) 5.1 K/uL (1.8-7.7); NEUTROPHILS % (AUTO) 67.3 % (40.0-70.0); PLATELET COUNT (AUTO) 243 K/uL (150-450); RED BLOOD CELL COUNT(AUTO) 3.17 MIL/uL (4.00-5.20); RED CELL DISTRIBUTION WIDTH 15.9 % (11.5-14.5)
[2021-06-24 17:35] LABS: ALBUMIN 3.4 g/dL (3.4-5.0); BILIRUBIN,TOTAL 0.3 mg/dL (0.1-1.0); CALCIUM, TOTAL 6.9 mg/dL (8.8-10.5); CREATININE 7.39 mg/dL (0.60-1.30); MAGNESIUM 2.7 mg/dL (1.80-2.40); TOTAL PROTEIN, SERUM 6.8 g/dL (6.4-8.2)
[2021-06-24 17:37] LABS: POTASSIUM 7.4 mmol/L (3.5-5.1)
[2021-06-24] MEDS ORDERED: INSULIN REGULAR, HUMAN 100 UNITS/ML IVP ONE (18:00)
[2021-06-24] MEDS ORDERED: DEXTROSE 50%-WATER 25 GM/50 ML SYRINGE IVP ONE (18:00)
[2021-06-24] MEDS ORDERED: SODIUM BICARBONATE [ADULT] 8.4% 50 MEQ/50 ML SYRINGE IVP ONE (18:15)
[2021-06-24] MEDS ORDERED: CALCIUM GLUCONATE 1,000 MG in DEXTROSE 5%-WATER 50 ML IV ONE (18:15)
[2021-06-24] MEDS ORDERED: ACETAMINOPHEN 325 MG TABLET PO PRN ×2 (19:30→20:30)
[2021-06-24] MEDS ORDERED: ONDANSETRON HCL 4 MG/2 ML VIAL IVP PRN ×2 (19:30→20:30)
[2021-06-24] MEDS ORDERED: ACETAMINOPHEN 500 MG TABLET PO ONE (19:30)
[2021-06-24] MEDS ORDERED: 0.9% SODIUM CHLORIDE 10 ML SYRINGE IVP PRN (19:30)
[2021-06-24 20:30] VITALS: BP 210/115
[2021-06-24] MEDS ORDERED: BISACODYL 10 MG RECTAL RECTAL SUPPOSITORY PR PRN (20:30)
[2021-06-24] MEDS ORDERED: MAGNESIUM HYDROXIDE SUSPENSION 30 ML UDCUP PO PRN (20:30)
[2021-06-24 20:32] LABS: COVID AG,FIA SOURCE NASOPHARYNGEAL
[2021-06-24] MEDS: HydrALAZINE HCL 20 MG/ML VIAL IVP PRN (20:44)
[2021-06-24] MEDS ORDERED: DEXTROSE 50%-WATER 25 GM/50 ML SYRINGE IVP PRN (20:45)
[2021-06-24] MEDS: INSULIN GLARGINE,HUM.REC.ANLOG 100 UNITS/ML SQ SCH (21:00)
[2021-06-24] MEDS: DOCUSATE SODIUM 100 MG CAPSULE PO SCH (21:00)
[2021-06-24 22:15] VITALS: BP 170/85
[2021-06-25] VITALS (10 sets, daily range): BP systolic 146–209; BP diastolic 68–98
[2021-06-25] MEDS: CARVEDILOL 12.5 MG TABLET PO SCH ×3 (00:02→21:15)
[2021-06-25] MEDS: HYDROCODONE/ACETAMINOPHEN 5-325 MG TABLET PO PRN ×4 (00:02→21:19)
[2021-06-25] MEDS: ATORVASTATIN CALCIUM 40 MG TABLET PO SCH ×2 (00:02→21:14)
[2021-06-25] MEDS: HEPARIN SODIUM,PORCINE 5,000 UNITS/ML VIAL SQ SCH ×4 (00:04→23:31)
[2021-06-25 00:31] LABS: GLUCOMETER DEV NAME(LOC) 5S.1; GLUCOSE,POINT OF CARE 100 MG/DL (70-110)
[2021-06-25] MEDS: LEVOTHYROXINE SODIUM 100 MCG TABLET PO SCH (06:22)
[2021-06-25 06:41] LABS: HEMOGLOBIN 10.3 g/dL (12.0-16.0); LYMPHOCYTES # (AUTO) 1.9 K/uL (1.0-4.8); LYMPHOCYTES % (AUTO) 30.5 % (22.0-44.0); MEAN CORPUSCULAR HEMOGLOBIN 31.1 pg (26.0-34.0); MEAN CORPUSCULAR HGB CONC 33.3 G/dL (31.0-37.0); MEAN CORPUSCULAR VOLUME 93 fL (80-100); MONOCYTES # (AUTO) 0.6 K/uL (0.1-1.0); MONOCYTES % (AUTO) 9.9 % (2.0-9.0); NEUTROPHILS # (AUTO) 3.4 K/uL (1.8-7.7); NEUTROPHILS % (AUTO) 55.6 % (40.0-70.0); PLATELET COUNT (AUTO) 241 K/uL (150-450); RED BLOOD CELL COUNT(AUTO) 3.32 MIL/uL (4.00-5.20); RED CELL DISTRIBUTION WIDTH 15.4 % (11.5-14.5)
[2021-06-25 06:52] LABS: CALCIUM, TOTAL 8.4 mg/dL (8.8-10.5); CREATININE 4.59 mg/dL (0.60-1.30); POTASSIUM 4.4 mmol/L (3.5-5.1)
[2021-06-25] MEDS: PANTOPRAZOLE SODIUM 40 MG DR TABLET PO SCH (08:12)
[2021-06-25] MEDS: SEVELAMER CARBONATE 800 MG TABLET PO SCH ×3 (08:12→17:48)
[2021-06-25] MEDS: DOCUSATE SODIUM 100 MG CAPSULE PO SCH ×2 (08:12→21:00)
[2021-06-25] MEDS: MORPHINE SULFATE 2 MG/ML SYRINGE IVP PRN ×2 (08:14→16:41)
[2021-06-25] MEDS: INSULIN GLARGINE,HUM.REC.ANLOG 100 UNITS/ML SQ SCH ×3 (09:00→21:22)
[2021-06-25 11:02] LABS: GLUCOMETER DEV NAME(LOC) 5S.1; GLUCOSE,POINT OF CARE 81 MG/DL (70-110)
[2021-06-25] MEDS: INSULIN LISPRO 100 UNITS/ML SQ PRN ×2 (11:34→17:50)
[2021-06-25 11:55] LABS: AMPHET/METH SCREEN,URINE NEGATIVE (NEGATIVE); BARBITURATE SCREEN, URINE NEGATIVE (NEGATIVE); BENZODIAZEPINES SCREEN,URINE NEGATIVE (NEGATIVE); CANNABINOID SCREEN,URINE NEGATIVE (NEGATIVE); COCAINE SCREEN,URINE NEGATIVE (NEGATIVE); METHADONE SCREEN, URINE NEGATIVE (NEGATIVE); OPIATE SCREEN,URINE NEGATIVE (NEGATIVE)
[2021-06-25 12:00] LABS: PHENCYCLIDINE SCREEN,URINE NEGATIVE (NEGATIVE)
[2021-06-25] MEDS: HydrALAZINE HCL 20 MG/ML VIAL IVP PRN (12:59)
[2021-06-25 13:26] LABS: PHOSPHORUS 5.6 mg/dL (2.5-4.9)
[2021-06-25] MEDS: GABAPENTIN 400 MG CAPSULE PO SCH ×2 (15:27→21:15)
[2021-06-25] MEDS: ZOLPIDEM TARTRATE 5 MG TABLET PO PRN (23:34)
[2021-06-26] MEDS: HYDROCODONE/ACETAMINOPHEN 5-325 MG TABLET PO PRN ×5 (01:36→23:57)
[2021-06-26] MEDS: HydrALAZINE HCL 20 MG/ML VIAL IVP PRN (04:40)
[2021-06-26 04:46] VITALS: BP 197/95
[2021-06-26] MEDS: INSULIN LISPRO 100 UNITS/ML SQ PRN ×5 (06:18→20:49)
[2021-06-26] MEDS: LEVOTHYROXINE SODIUM 100 MCG TABLET PO SCH (06:18)
[2021-06-26 06:54] LABS: BASOPHILS % (AUTO) 0.7 % (0.0-2.0); EOSINOPHILS % (AUTO) 3.3 % (1.0-6.0); HEMATOCRIT 32.5 % (36-46); HEMOGLOBIN 10.9 g/dL (12.0-16.0); LYMPHOCYTES # (AUTO) 1.9 K/uL (1.0-4.8); LYMPHOCYTES % (AUTO) 28.3 % (22.0-44.0); MEAN CORPUSCULAR HEMOGLOBIN 31.4 pg (26.0-34.0); MEAN CORPUSCULAR HGB CONC 33.6 G/dL (31.0-37.0); MEAN CORPUSCULAR VOLUME 93 fL (80-100); MONOCYTES # (AUTO) 0.7 K/uL (0.1-1.0); MONOCYTES % (AUTO) 9.8 % (2.0-9.0); NEUTROPHILS # (AUTO) 3.9 K/uL (1.8-7.7); NEUTROPHILS % (AUTO) 57.9 % (40.0-70.0); PLATELET COUNT (AUTO) 245 K/uL (150-450); RED BLOOD CELL COUNT(AUTO) 3.49 MIL/uL (4.00-5.20); RED CELL DISTRIBUTION WIDTH 14.8 % (11.5-14.5)
[2021-06-26 07:10] LABS: CALCIUM, TOTAL 8.1 mg/dL (8.8-10.5); CREATININE 3.98 mg/dL (0.60-1.30); POTASSIUM 4.5 mmol/L (3.5-5.1)
[2021-06-26 07:55] VITALS: BP 140/69
[2021-06-26] MEDS: GABAPENTIN 400 MG CAPSULE PO SCH ×3 (08:52→20:46)
[2021-06-26] MEDS: SEVELAMER CARBONATE 800 MG TABLET PO SCH ×3 (08:52→17:37)
[2021-06-26] MEDS: PANTOPRAZOLE SODIUM 40 MG DR TABLET PO SCH (08:52)
[2021-06-26] MEDS: CARVEDILOL 12.5 MG TABLET PO SCH ×2 (08:52→20:46)
[2021-06-26] MEDS: DOCUSATE SODIUM 100 MG CAPSULE PO SCH ×2 (08:52→20:45)
[2021-06-26] MEDS: HEPARIN SODIUM,PORCINE 5,000 UNITS/ML VIAL SQ SCH ×3 (08:53→23:57)
[2021-06-26] MEDS: MORPHINE SULFATE 2 MG/ML SYRINGE IVP PRN ×2 (08:53→20:52)
[2021-06-26] MEDS: INSULIN GLARGINE,HUM.REC.ANLOG 100 UNITS/ML SQ SCH ×2 (09:11→20:48)
[2021-06-26] MEDS ORDERED: INFLUENZA VIRUS VACCINE QVS 2021-22 (6MO+)/PF 60 MCG/0.5 ML SYRINGE IM. ONE (10:00)
[2021-06-26 11:38] VITALS: BP 152/76
[2021-06-26 13:07] LABS: GLUCOMETER DEV NAME(LOC) 5S.2B; GLUCOSE,POINT OF CARE 206 MG/DL (70-110)
[2021-06-26 15:45] VITALS: BP 157/73
[2021-06-26] MEDS ORDERED: LIDOCAINE/PF 1% 2 ML VIAL IM ONE (16:32)
[2021-06-26] MEDS ORDERED: DiphenhydrAMINE HCL 50 MG/ML VIAL IM ONE (16:32)
[2021-06-26 17:58] LABS: GLUCOMETER DEV NAME(LOC) 5S.2B; GLUCOSE,POINT OF CARE 205 MG/DL (70-110)
[2021-06-26 19:30] VITALS: BP 135/63
[2021-06-26] MEDS: ZOLPIDEM TARTRATE 5 MG TABLET PO PRN (20:46)
[2021-06-26] MEDS: ATORVASTATIN CALCIUM 40 MG TABLET PO SCH (20:46)
[2021-06-27] VITALS: BP 132/65
[2021-06-27 02:19] LABS: GLUCOMETER DEV NAME(LOC) 5S.1; GLUCOSE,POINT OF CARE 205 MG/DL (70-110)
[2021-06-27 02:19] LABS: GLUCOMETER DEV NAME(LOC) 5S.1; GLUCOSE,POINT OF CARE 316 MG/DL (70-110)
[2021-06-27] MEDS: MORPHINE SULFATE 2 MG/ML SYRINGE IVP PRN ×2 (03:56→19:41)
[2021-06-27 04:19] VITALS: BP 155/76
[2021-06-27 06:07] LABS: BASOPHILS % (AUTO) 0.9 % (0.0-2.0); EOSINOPHILS % (AUTO) 3.9 % (1.0-6.0); HEMATOCRIT 30.7 % (36-46); HEMOGLOBIN 10.1 g/dL (12.0-16.0); LYMPHOCYTES # (AUTO) 2.5 K/uL (1.0-4.8); LYMPHOCYTES % (AUTO) 40.4 % (22.0-44.0); MEAN CORPUSCULAR HEMOGLOBIN 31.1 pg (26.0-34.0); MEAN CORPUSCULAR HGB CONC 32.8 G/dL (31.0-37.0); MEAN CORPUSCULAR VOLUME 95 fL (80-100); MONOCYTES # (AUTO) 0.7 K/uL (0.1-1.0); MONOCYTES % (AUTO) 10.5 % (2.0-9.0); NEUTROPHILS # (AUTO) 2.8 K/uL (1.8-7.7); NEUTROPHILS % (AUTO) 44.3 % (40.0-70.0); PLATELET COUNT (AUTO) 261 K/uL (150-450); RED BLOOD CELL COUNT(AUTO) 3.24 MIL/uL (4.00-5.20); RED CELL DISTRIBUTION WIDTH 14.8 % (11.5-14.5)
[2021-06-27] MEDS: LEVOTHYROXINE SODIUM 100 MCG TABLET PO SCH (06:15)
[2021-06-27] MEDS: HYDROCODONE/ACETAMINOPHEN 5-325 MG TABLET PO PRN ×2 (06:16→11:24)
[2021-06-27 06:24] LABS: CALCIUM, TOTAL 7.2 mg/dL (8.8-10.5); CREATININE 6.31 mg/dL (0.60-1.30); POTASSIUM 5.4 mmol/L (3.5-5.1)
[2021-06-27 07:47] VITALS: BP 118/48
[2021-06-27] MEDS: HEPARIN SODIUM,PORCINE 5,000 UNITS/ML VIAL SQ SCH ×2 (08:00→16:00)
[2021-06-27 08:15] VITALS: BP 147/71
[2021-06-27] MEDS: SEVELAMER CARBONATE 800 MG TABLET PO SCH ×3 (08:21→17:28)
[2021-06-27] MEDS: PANTOPRAZOLE SODIUM 40 MG DR TABLET PO SCH (08:22)
[2021-06-27] MEDS: DOCUSATE SODIUM 100 MG CAPSULE PO SCH ×2 (08:22→19:40)
[2021-06-27] MEDS: INSULIN GLARGINE,HUM.REC.ANLOG 100 UNITS/ML SQ SCH ×2 (08:25→21:26)
[2021-06-27] MEDS: GABAPENTIN 400 MG CAPSULE PO SCH ×3 (09:00→19:40)
[2021-06-27] MEDS: CARVEDILOL 12.5 MG TABLET PO SCH ×2 (09:00→19:41)
[2021-06-27 11:15] VITALS: BP 146/77
[2021-06-27] MEDS: INSULIN LISPRO 100 UNITS/ML SQ PRN ×3 (11:30→21:26)
[2021-06-27] MEDS ORDERED: CARV12 PO (11:46)
[2021-06-27] MEDS ORDERED: HYDR-4723 PO (11:49)
[2021-06-27 17:44] LABS: GLUCOMETER DEV NAME(LOC) 5S.1; GLUCOSE,POINT OF CARE 144 MG/DL (70-110)
[2021-06-27 17:44] LABS: GLUCOMETER DEV NAME(LOC) 5S.1; GLUCOSE,POINT OF CARE 209 MG/DL (70-110)
[2021-06-27 19:38] VITALS: BP 151/63
[2021-06-27] MEDS: ATORVASTATIN CALCIUM 40 MG TABLET PO SCH (19:40)
[2021-06-27] MEDS: ZOLPIDEM TARTRATE 5 MG TABLET PO PRN (21:25)
[2021-06-28 00:30] VITALS: BP 153/81
[2021-06-28] MEDS: MORPHINE SULFATE 2 MG/ML SYRINGE IVP PRN ×2 (00:46→06:34)
[2021-06-28] MEDS: HEPARIN SODIUM,PORCINE 5,000 UNITS/ML VIAL SQ SCH ×2 (00:46→08:42)
[2021-06-28 05:00] VITALS: BP 173/76
[2021-06-28] MEDS: HYDROCODONE/ACETAMINOPHEN 5-325 MG TABLET PO PRN (05:01)
[2021-06-28] MEDS: LEVOTHYROXINE SODIUM 100 MCG TABLET PO SCH (05:01)
[2021-06-28] MEDS: HydrALAZINE HCL 20 MG/ML VIAL IVP PRN (05:02)
[2021-06-28 05:28] LABS: GLUCOMETER DEV NAME(LOC) 5N.1C; GLUCOSE,POINT OF CARE 139 MG/DL (70-110)
[2021-06-28 05:28] LABS: GLUCOMETER DEV NAME(LOC) 5N.1C; GLUCOSE,POINT OF CARE 131 MG/DL (70-110)
[2021-06-28 05:28] LABS: GLUCOMETER DEV NAME(LOC) 5N.1C; GLUCOSE,POINT OF CARE 297 MG/DL (70-110)
[2021-06-28 05:28] LABS: GLUCOMETER DEV NAME(LOC) 5N.1C; GLUCOSE,POINT OF CARE 185 MG/DL (70-110)
[2021-06-28 08:05] VITALS: BP 154/85
[2021-06-28] MEDS: CARVEDILOL 12.5 MG TABLET PO SCH (08:43)
[2021-06-28] MEDS: PANTOPRAZOLE SODIUM 40 MG DR TABLET PO SCH (08:43)
[2021-06-28] MEDS: SEVELAMER CARBONATE 800 MG TABLET PO SCH (08:43)
[2021-06-28] MEDS: DOCUSATE SODIUM 100 MG CAPSULE PO SCH (08:43)
[2021-06-28] MEDS: GABAPENTIN 400 MG CAPSULE PO SCH (08:43)
[2021-06-28] MEDS: INSULIN GLARGINE,HUM.REC.ANLOG 100 UNITS/ML SQ SCH (08:49)
[2021-06-28 11:25] VITALS: BP 164/74
[2021-06-28] MEDS ORDERED: LIDOCAINE/PF 1% 2 ML VIAL CAUDAL ONE (12:05)
[2021-06-28] MEDS ORDERED: DiphenhydrAMINE HCL 50 MG/ML VIAL IM ONE (12:05)
[2021-06-28 21:41] LABS: GLUCOMETER DEV NAME(LOC) 5N.3; GLUCOSE,POINT OF CARE 216 MG/DL (70-110)
[2021-06-28 21:41] LABS: GLUCOMETER DEV NAME(LOC) 5N.3; GLUCOSE,POINT OF CARE 124 MG/DL (70-110)
[2021-06-29] MEDS ORDERED: EPOETIN ALFA 10,000 UNITS/ML 2 ML VIAL SQ SCH (09:00)
== END 2021-06-28 12:06 | disposition home or self-care (01) | DRG 194 ==
LOC: EMS 15:49 → 5S 19:45
PROVIDERS: ADMIT Internal Medicine; ATTEND Internal Medicine
PROC: 5A1D70Z Performance of Urinary Filtration, Intermittent, Less than 6 Hours Per Day (ICD-10-PCS; principal; 2021-06-24)
PROC: 5A1D70Z Performance of Urinary Filtration, Intermittent, Less than 6 Hours Per Day (ICD-10-PCS; 2021-06-25)
PROC: 5A1D70Z Performance of Urinary Filtration, Intermittent, Less than 6 Hours Per Day (ICD-10-PCS; 2021-06-27)
DX: I13.2 Hypertensive heart and chronic kidney disease with heart failure and with stage 5 chronic kidney disease, or end stage renal disease (principal); M62.82 Rhabdomyolysis; N18.6 End stage renal disease; D63.1 Anemia in chronic kidney disease; E87.5 Hyperkalemia; I50.31 Acute diastolic (congestive) heart failure; E11.22 Type 2 diabetes mellitus with diabetic chronic kidney disease; I16.0 Hypertensive urgency; G89.4 Chronic pain syndrome; Z20.822 Contact with and (suspected) exposure to COVID-19; M19.90 Unspecified osteoarthritis, unspecified site; E78.5 Hyperlipidemia, unspecified; E03.9 Hypothyroidism, unspecified; Z90.710 Acquired absence of both cervix and uterus; Z99.2 Dependence on renal dialysis; Z98.1 Arthrodesis status; Z79.4 Long term (current) use of insulin; Z79.899 Other long term (current) drug therapy; Z91.19 Patient's noncompliance with other medical treatment and regimen; Z88.0 Allergy status to penicillin; Z88.8 Allergy status to other drugs, medicaments and biological substances
CPT/HCPCS: 71045; 74176; 80048; 80053; 80307; 82550; 82962; 83690; 83735; 83880; 84100; 84484; 85025; 87081; 87340; 93005; 93306; 99285; G0378; J0360; J0610; J1200; J1644; J1815; J2270; J2405; J3490; J7060; 36415-L1; 36415-TC